=== PATIENT | female | born 1985 | race African-American/Black ===

== ENCOUNTER 2017-11-05 07:46 | Inpatient (IN) ==
[2017-11-05] MEDS ORDERED: ONDANSETRON 4 MG/2 ML VIAL IV PRN (08:26)
[2017-11-05] MEDS ORDERED: SODIUM CHLORIDE 0.9% 1,000 ML IV STA (08:26)
[2017-11-05] MEDS ORDERED: LEVOFLOXACIN INJ 750 MG in PREMIX 1 EACH IV STA (08:27)
[2017-11-05 08:57] LABS: Apearance,Urine Cloudy (Clear); Urine Color Dark yellow (Yellow)
[2017-11-05 08:58] LABS: Glucose,Urine (UA) Negative (Negative); Ketones,Urine Negative (Negative); Nitrite,Urine Negative (Negative); Protein,Urine 2+ MG/DL; Urine Specific Gravity 1.025 (1.001-1.035)
[2017-11-05 08:59] LABS: Bilirubin,Urine Negative (Negative); Blood, Urine 2+ mg/dL (Negative); Urine Urobilinogen 0.2 EU/DL (0.2-1.0)
[2017-11-05 09:04] LABS: RBC,Urine 8 /HPF (0-4); WBC,Urine 10 /HPF (0-6)
[2017-11-05 09:05] LABS: Bacteria,Urine Rare /HPF (Few); Squamous Epithelial Cell,Urine Rare /HPF (0-10)
[2017-11-05 09:15] LABS: Basophils % 0.3 % (0.0-0.8); Eosinophils # 0.1 10*3/uL (0.0-0.87); Eosinophils % 0.9 % (0.00-10.9); Hematocrit 34.3 VOL% (35.7-47.0); Immature Granulocytes % 0.4 %; Immature Granulocytes Absolute 0.04 #; Lymphocytes % 28.2 % (21.3-54.2); Mean Corpuscular HGB Conc 29.2 GM/DL (32-36); Mean Corpuscular Hemoglobin 20 PG (27-34); Mean Corpuscular Volume 68.2 FL (87-102); Mean Platelet Volume 9.6 FL (9.6-12.0); Monocytes # 0.7 10*3/uL (0.11-0.8); Monocytes % 6.9 % (1.7-12.7); Neutrophils # 6.7 10*3/uL (1.4-7.4); Neutrophils % 63.3 % (38.7-73.9); Platelet Count 393 T/CUMM (130-400); Red Blood Count 5.03 MC/CUMM (3.8-5.5); Red Cell Distribution Width 20.2 % (9.3-17.3); White Blood Count 10.6 T/CUMM (4-12)
[2017-11-05] MEDS ORDERED: LEVOFLOXACIN INJ 150 ML IV ONE (09:27)
[2017-11-05] MEDS ORDERED: HYDROmorphone 2 MG/1 ML VIAL IV STA ×2 (09:35→14:30)
[2017-11-05] MEDS ORDERED: HYDROmorphone 2 MG/1 ML VIAL ONE (09:36)
[2017-11-05] MEDS ORDERED: ONDANSETRON 4 MG/2 ML VIAL ONE (09:36)
[2017-11-05 10:03] LABS: Alanine Aminotransferase 11 U/L (13-56); Albumin 3.4 G/DL (3.4-5.0); Alkaline Phosphatase 86 U/L (45-117); Aspartate Amino Transferase 11 U/L (0-37); Bilirubin,Total < 0.39 MG/DL (0.2-1.0); Blood Urea Nitrogen 16 MG/DL (7-18); Calcium 8.6 MG/DL (8.5-10.1); Total Protein 8.1 G/DL (6.4-8.3)
[2017-11-05 10:04] LABS: Glucose 91 MG/DL (74-106); Osmolality,Calculated 279.4 MOS/KG (273-304); Potassium 4.6 MMOL/L (3.5-5.1); Sodium 140 MMOL/L (136-145)
[2017-11-05] MEDS ORDERED: ALUMINUM/MAGNES/SIMETH MAX STR 30 ML UDCUP PO PRN (14:15)
[2017-11-05] MEDS ORDERED: ACETAMINOPHEN 325 MG TABLET PO PRN (14:15)
[2017-11-05] MEDS ORDERED: DEXTROSE 50% 25 GM/50 ML VIAL IV PRN (14:25)
[2017-11-05] MEDS ORDERED: GLUCAGON 1 MG VIAL IM PRN (14:25)
[2017-11-05] MEDS ORDERED: CIPROFLOXACIN 400 MG/200 ML PREMIX IV ONE (14:33)
[2017-11-05] MEDS ORDERED: BISACODYL 5 MG TABLET PO ONE (15:00)
[2017-11-05] MEDS: CIPROFLOXACIN INJ 400 MG in PREMIX 1 EACH IV SCH ×2 (15:07→15:50)
[2017-11-05] MEDS: metroNIDAZOLE INJ 500 MG in PREMIX 1 EACH IV SCH ×2 (16:02→23:39)
[2017-11-05] MEDS: SODIUM CHLORIDE 0.45% 1,000 ML IV SCH ×2 (16:02→23:39)
[2017-11-05] MEDS: INSULIN REGULAR 100 UNIT/ML SUBCUT SCH ×2 (16:39→20:50)
[2017-11-05] MEDS: HYDROmorphone 2 MG/1 ML VIAL IV PRN (20:16)
[2017-11-05] MEDS: ALVIMOPAN 12 MG CAPSULE PO SCH (20:20)
[2017-11-05] MEDS: DOCUSATE SODIUM 100 MG CAPSULE PO SCH (20:20)
[2017-11-05] MEDS: ONDANSETRON 4 MG/2 ML VIAL IV PRN (20:20)
[2017-11-06] MEDS: HYDROmorphone 2 MG/1 ML VIAL IV PRN ×4 (00:43→18:55)
[2017-11-06] MEDS: ONDANSETRON 4 MG/2 ML VIAL IV PRN ×5 (00:48→21:37)
[2017-11-06 05:00] LABS: Basophils % 0.2 % (0.0-0.8); Eosinophils % 0.1 % (0.00-10.9); Hematocrit 31.1 VOL% (35.7-47.0); Hemoglobin 9.1 GM/DL (12.0-16.0); Immature Granulocytes % 0.4 %; Immature Granulocytes Absolute 0.04 #; Lymphocytes # 1.6 10*3/uL (1.4-4.0); Lymphocytes % 15.6 % (21.3-54.2); Mean Corpuscular HGB Conc 29.3 GM/DL (32-36); Mean Corpuscular Hemoglobin 20 PG (27-34); Mean Corpuscular Volume 67.9 FL (87-102); Mean Platelet Volume 9.5 FL (9.6-12.0); Monocytes # 0.7 10*3/uL (0.11-0.8); Monocytes % 6.5 % (1.7-12.7); Neutrophils # 7.8 10*3/uL (1.4-7.4); Neutrophils % 77.2 % (38.7-73.9); Platelet Count 442 T/CUMM (130-400); Red Blood Count 4.58 MC/CUMM (3.8-5.5); Red Cell Distribution Width 19.9 % (9.3-17.3)
[2017-11-06 05:40] LABS: Alanine Aminotransferase < 9 U/L (13-56); Alkaline Phosphatase 83 U/L (45-117); Aspartate Amino Transferase 8 U/L (0-37); Blood Urea Nitrogen 7 MG/DL (7-18); Calcium 8.1 MG/DL (8.5-10.1); Glucose 90 MG/DL (74-106); Osmolality,Calculated 272.7 MOS/KG (273-304); Potassium 4.3 MMOL/L (3.5-5.1); Sodium 138 MMOL/L (136-145); Total Protein 7.2 G/DL (6.4-8.3)
[2017-11-06] MEDS: CIPROFLOXACIN INJ 400 MG in PREMIX 1 EACH IV SCH ×2 (05:49→18:55)
[2017-11-06] MEDS: SODIUM CHLORIDE 0.45% 1,000 ML IV SCH ×2 (06:17→20:20)
[2017-11-06] MEDS: INSULIN REGULAR 100 UNIT/ML SUBCUT SCH ×4 (07:50→21:47)
[2017-11-06] MEDS: metroNIDAZOLE INJ 500 MG in PREMIX 1 EACH IV SCH ×2 (07:56→14:51)
[2017-11-06] MEDS: PANTOPRAZOLE 40 MG VIAL IV SCH (12:16)
[2017-11-06] MEDS: ALVIMOPAN 12 MG CAPSULE PO SCH ×2 (14:50→21:37)
[2017-11-06] MEDS: DOCUSATE SODIUM 100 MG CAPSULE PO SCH ×2 (14:50→21:37)
[2017-11-07] MEDS: metroNIDAZOLE INJ 500 MG in PREMIX 1 EACH IV SCH ×4 (00:57→23:57)
[2017-11-07] MEDS: HYDROmorphone 2 MG/1 ML VIAL IV PRN ×4 (01:24→20:42)
[2017-11-07] MEDS: ONDANSETRON 4 MG/2 ML VIAL IV PRN ×3 (01:25→20:42)
[2017-11-07] MEDS: SODIUM CHLORIDE 0.45% 1,000 ML IV SCH ×3 (02:49→23:57)
[2017-11-07] MEDS: CIPROFLOXACIN INJ 400 MG in PREMIX 1 EACH IV SCH ×2 (05:14→17:51)
[2017-11-07] MEDS: INSULIN REGULAR 100 UNIT/ML SUBCUT SCH ×4 (08:00→20:46)
[2017-11-07] MEDS: PANTOPRAZOLE 40 MG VIAL IV SCH (09:15)
[2017-11-07] MEDS ORDERED: BENZOCAINE 20% SPRAY 57 GM CAN TOP ONE (09:45)
[2017-11-07] MEDS ORDERED: TRIAMCINOLONE ACETONIDE 40 MG/1 ML VIAL MISC INJ ONE (09:45)
[2017-11-07] MEDS ORDERED: TRIAMCINOLONE 0.1% DENTAL PASTE 5 GM TUBE TOP PRN ×2 (10:17→11:59)
[2017-11-07] MEDS: ALVIMOPAN 12 MG CAPSULE PO SCH ×2 (12:18→20:42)
[2017-11-07] MEDS: DOCUSATE SODIUM 100 MG CAPSULE PO SCH ×2 (12:18→20:42)
[2017-11-08] MEDS: SODIUM CHLORIDE 0.45% 1,000 ML IV SCH ×3 (00:22→15:58)
[2017-11-08] MEDS: CIPROFLOXACIN INJ 400 MG in PREMIX 1 EACH IV SCH (05:58)
[2017-11-08] MEDS: metroNIDAZOLE INJ 500 MG in PREMIX 1 EACH IV SCH (07:33)
[2017-11-08] MEDS: INSULIN REGULAR 100 UNIT/ML SUBCUT SCH ×4 (07:39→21:05)
[2017-11-08] MEDS: DOCUSATE SODIUM 100 MG CAPSULE PO SCH ×2 (09:38→20:40)
[2017-11-08] MEDS: PANTOPRAZOLE 40 MG VIAL IV SCH (09:38)
[2017-11-08] MEDS: ALVIMOPAN 12 MG CAPSULE PO SCH (09:38)
[2017-11-08] MEDS: HYDROmorphone 2 MG/1 ML VIAL IV PRN (10:01)
[2017-11-08] MEDS: PHENAZOPYRIDINE 95 MG TABLET PO SCH ×2 (12:58→17:39)
[2017-11-08] MEDS: CIPROFLOXACIN 500 MG TABLET PO SCH (20:40)
[2017-11-09 06:40] LABS: Basophils % 0.3 % (0.0-0.8); Eosinophils # 0.1 10*3/uL (0.0-0.87); Eosinophils % 1.1 % (0.00-10.9); Hematocrit 31.1 VOL% (35.7-47.0); Hemoglobin 9.3 GM/DL (12.0-16.0); Immature Granulocytes % 0.3 %; Immature Granulocytes Absolute 0.03 #; Lymphocytes # 3.6 10*3/uL (1.4-4.0); Lymphocytes % 38.8 % (21.3-54.2); Mean Corpuscular HGB Conc 29.9 GM/DL (32-36); Mean Corpuscular Hemoglobin 20 PG (27-34); Mean Corpuscular Volume 67.5 FL (87-102); Mean Platelet Volume 9.1 FL (9.6-12.0); Monocytes # 0.6 10*3/uL (0.11-0.8); Neutrophils # 4.8 10*3/uL (1.4-7.4); Neutrophils % 52.5 % (38.7-73.9); Platelet Count 465 T/CUMM (130-400); Red Blood Count 4.61 MC/CUMM (3.8-5.5); Red Cell Distribution Width 19.9 % (9.3-17.3); White Blood Count 9.2 T/CUMM (4-12)
[2017-11-09 07:12] LABS: Alanine Aminotransferase 10 U/L (13-56); Albumin 2.9 G/DL (3.4-5.0); Alkaline Phosphatase 71 U/L (45-117); Aspartate Amino Transferase 8 U/L (0-37); Bilirubin,Total < 0.39 MG/DL (0.2-1.0); Blood Urea Nitrogen 11 MG/DL (7-18); Calcium 8.4 MG/DL (8.5-10.1); Glucose 91 MG/DL (74-106); Osmolality,Calculated 277.4 MOS/KG (273-304); Potassium 4.3 MMOL/L (3.5-5.1); Sodium 140 MMOL/L (136-145); Total Protein 7.2 G/DL (6.4-8.3)
[2017-11-09] MEDS: INSULIN REGULAR 100 UNIT/ML SUBCUT SCH (07:19)
[2017-11-09] MEDS: PHENAZOPYRIDINE 95 MG TABLET PO SCH (07:54)
[2017-11-09] MEDS: CIPROFLOXACIN 500 MG TABLET PO SCH ×2 (07:58→10:35)
[2017-11-09] MEDS: DOCUSATE SODIUM 100 MG CAPSULE PO SCH ×2 (07:58→10:35)
[2017-11-09] MEDS: PANTOPRAZOLE 40 MG TABLET PO SCH ×2 (07:59→10:35)
[2017-11-09 11:37] VITALS: BP 161/84
== END 2017-11-09 11:08 | disposition home or self-care (01) | DRG 463 ==
LOC: N.ED 07:46 → N.EDINP 14:15 → N.3E 15:19
PROVIDERS: ADMIT Specialist; ATTEND Specialist

== ENCOUNTER 2020-01-08 09:00 | Inpatient (IN) ==
[2020-01-08] MEDS ORDERED: CLINDAMYCIN INJ 900 MG in PREMIX 1 EACH IV ONE (09:32)
[2020-01-08] MEDS ORDERED: FAMOTIDINE 20 MG/2 ML VIAL IV ONE (09:32)
[2020-01-08] MEDS ORDERED: CITRIC ACID/SODIUM CITRATE 30 ML UDCUP PO ONE (09:32)
[2020-01-08] MEDS: LACTATED RINGERS 1,000 ML IV SCH ×2 (09:34→23:34)
[2020-01-08 09:54] LABS: Basophils % 0.3 % (0.0-0.8); Eosinophils # 0.2 10*3/uL (0.0-0.87); Eosinophils % 1.7 % (0.00-10.9); Hematocrit 37.6 VOL% (35.7-47.0); Hemoglobin 11.6 GM/DL (12.0-16.0); Immature Granulocytes % 0.4 %; Immature Granulocytes Absolute 0.04 #; Lymphocytes # 2.9 10*3/uL (1.4-4.0); Lymphocytes % 29.9 % (21.3-54.2); Mean Corpuscular HGB Conc 30.9 GM/DL (32-36); Mean Corpuscular Volume 76.6 FL (87-102); Mean Platelet Volume 11.3 FL (9.6-12.0); Monocytes % 5.6 % (1.7-12.7); Neutrophils % 62.1 % (38.7-73.9); Platelet Count 238 T/CUMM (130-400); Red Blood Count 4.91 MC/CUMM (3.8-5.5); White Blood Count 9.6 T/CUMM (4-12)
[2020-01-08 10:18] LABS: Alanine Aminotransferase 18 U/L (13-56); Albumin 2.8 G/DL (3.4-5.0); Alkaline Phosphatase 185 U/L (45-117); Aspartate Amino Transferase 20 U/L (0-37); Bilirubin,Total < 0.39 MG/DL (0.2-1.0); Blood Urea Nitrogen 5 MG/DL (7-18); Calcium 8.9 MG/DL (8.5-10.1); Estimated Glom Filtration Rate 193 ML/MIN; Glucose 106 MG/DL (74-106); Osmolality,Calculated 269.8 MOS/KG (273-304); Total Protein 7.9 G/DL (6.4-8.3)
[2020-01-08] MEDS ORDERED: DEXAMETHASONE 4 MG/1 ML VIAL ONE (10:20)
[2020-01-08] MEDS ORDERED: ROPIVACAINE 0.5% 30 ML VIAL ONE (10:20)
[2020-01-08] MEDS ORDERED: OXYTOCIN 40 UNIT in LACTATED RINGERS 1,000 ML IV ONE (11:15)
[2020-01-08] MEDS ORDERED: PHENYLEPHRINE 1 MG/10 ML SYRINGE IV ONE (14:01)
[2020-01-08] MEDS ORDERED: MIDAZOLAM 2 MG/2 ML VIAL ONE (14:02)
[2020-01-08] MEDS ORDERED: fentaNYL 100 MCG/2 ML VIAL ONE (14:02)
[2020-01-08] MEDS ORDERED: propofoL 200 MG/20 ML VIAL IV ONE (14:02)
[2020-01-08] MEDS ORDERED: LIDOCAINE 2% 5 ML VIAL ONE (14:02)
[2020-01-08] MEDS ORDERED: BUPIVACAINE SPINAL 0.75% 2 ML AMP SPINAL ONE (14:02)
[2020-01-08] MEDS ORDERED: ROCURONIUM 100 MG/10 ML VIAL IV ONE (14:03)
[2020-01-08] MEDS ORDERED: SUCCINYLCHOLINE 200 MG/10 ML VIAL ONE (14:03)
[2020-01-08] MEDS ORDERED: MORPHINE 10 MG/10 ML VIAL ONE (14:04)
[2020-01-08 14:55] LABS: Apearance,Urine CLEAR (Clear); Bilirubin,Urine Negative (Negative); Blood, Urine Negative (Negative); Glucose,Urine (UA) Negative (Negative); Ketones,Urine Negative (Negative); Mucus,Urine Occasional /LPF (Occasional); Nitrite,Urine Negative (Negative); Protein,Urine Negative; RBC,Urine 1 /HPF (0-4); Squamous Epithelial Cell,Urine Occasional /HPF (0-10); Urine Color Yellow (Yellow); Urine Specific Gravity 1.008 (1.001-1.035); Urine Urobilinogen < 2.0 EU/DL (0.2-1.0); WBC,Urine <1 /HPF (0-6)
[2020-01-08] MEDS: KETOROLAC 30 MG/1 ML VIAL IV SCH ×2 (15:52→23:32)
[2020-01-08] MEDS ORDERED: OXYTOCIN/LR 20 UNIT/1,000 ML BAG IV ONE ×2 (16:13→16:50)
[2020-01-08] MEDS ORDERED: ONDANSETRON 4 MG/2 ML VIAL IV PRN (16:50)
[2020-01-08] MEDS ORDERED: MAGNESIUM HYDROXIDE SUSP 30 ML UDCUP PO PRN (16:50)
[2020-01-08] MEDS ORDERED: RHO(D) IMMUNE GLOBULIN 300 MCG SYRINGE IM ONE (16:50)
[2020-01-08] MEDS ORDERED: IBUPROFEN 800 MG TABLET PO PRN (16:50)
[2020-01-08] MEDS ORDERED: ACETAMINOPHEN 325 MG TABLET PO PRN (16:50)
[2020-01-08 17:08] LABS: Hemoglobin 9.8 GM/DL (12.0-16.0)
[2020-01-08] MEDS ORDERED: NALOXONE 0.4 MG/ML VIAL IV PRN (17:22)
[2020-01-08] MEDS ORDERED: HYDROmorphone PCA 30 MG/30 ML SYRINGE IV SCH (17:30)
[2020-01-08] MEDS ORDERED: HYDROmorphone PCA 30 MG/30 ML SYRINGE IV ONE (18:09)
[2020-01-08] MEDS: METOCLOPRAMIDE 10 MG/2 ML VIAL IV SCH (19:49)
[2020-01-08] MEDS: diphenhydrAMINE 50 MG/1 ML VIAL IV PRN (21:45)
[2020-01-08] MEDS: CLINDAMYCIN INJ 900 MG in PREMIX 1 EACH IV SCH (21:50)
[2020-01-09] MEDS: METOCLOPRAMIDE 10 MG/2 ML VIAL IV SCH ×3 (04:04→20:53)
[2020-01-09] MEDS: CLINDAMYCIN INJ 900 MG in PREMIX 1 EACH IV SCH (05:10)
[2020-01-09] MEDS: KETOROLAC 30 MG/1 ML VIAL IV SCH ×3 (05:34→15:34)
[2020-01-09 06:09] LABS: Basophils % 0.1 % (0.0-0.8); Eosinophils % 0.1 % (0.00-10.9); Hematocrit 26.6 VOL% (35.7-47.0); Hemoglobin 8.1 GM/DL (12.0-16.0); Immature Granulocytes % 0.5 %; Immature Granulocytes Absolute 0.08 #; Lymphocytes # 2.7 10*3/uL (1.4-4.0); Lymphocytes % 18.3 % (21.3-54.2); Mean Corpuscular HGB Conc 30.5 GM/DL (32-36); Mean Corpuscular Volume 78.2 FL (87-102); Mean Platelet Volume 11.6 FL (9.6-12.0); Monocytes % 6.9 % (1.7-12.7); Neutrophils % 74.1 % (38.7-73.9); Platelet Count 214 T/CUMM (130-400); Red Cell Distribution Width 16.9 % (9.3-17.3); White Blood Count 14.9 T/CUMM (4-12)
[2020-01-09] MEDS ORDERED: ETONOGESTREL 68 MG IMPLANT SUBCUT ONE (07:34)
[2020-01-09] MEDS: LACTATED RINGERS 1,000 ML IV SCH ×6 (07:45→23:26)
[2020-01-09] MEDS: HYDROmorphone 2 MG/1 ML VIAL IV PRN ×4 (08:48→20:58)
[2020-01-09] MEDS: diphenhydrAMINE 50 MG/1 ML VIAL IV PRN (08:55)
[2020-01-09] MEDS: DOCUSATE SODIUM 100 MG CAPSULE PO SCH ×2 (10:01→21:00)
[2020-01-09] MEDS: SERTRALINE 25 MG TABLET PO SCH (10:01)
[2020-01-09] MEDS ORDERED: KETOROLAC 30 MG/1 ML VIAL IV ONE (12:22)
[2020-01-09] MEDS: SIMETHICONE CHEW 80 MG TABLET PO PRN (18:15)
[2020-01-09] MEDS: KETOROLAC 30 MG/1 ML VIAL IV PRN ×2 (18:16→23:30)
[2020-01-10] MEDS: METOCLOPRAMIDE 10 MG/2 ML VIAL IV SCH (04:13)
[2020-01-10] MEDS: HYDROmorphone 2 MG/1 ML VIAL IV PRN ×2 (04:18→06:42)
[2020-01-10] MEDS: LACTATED RINGERS 1,000 ML IV SCH (07:30)
[2020-01-10] MEDS: DOCUSATE SODIUM 100 MG CAPSULE PO SCH ×3 (09:00→23:42)
[2020-01-10] MEDS: SERTRALINE 25 MG TABLET PO SCH (09:00)
[2020-01-10] MEDS: MULTIVITAMIN (PRENATAL) TABLET PO SCH (09:03)
[2020-01-10] MEDS: IBUPROFEN 800 MG TABLET PO SCH ×2 (09:04→17:30)
[2020-01-10] MEDS: METOCLOPRAMIDE 10 MG TABLET PO SCH ×2 (11:55→19:15)
[2020-01-10] MEDS: SIMETHICONE CHEW 80 MG TABLET PO PRN (19:15)
[2020-01-11] MEDS: IBUPROFEN 800 MG TABLET PO SCH ×2 (00:41→08:26)
[2020-01-11] MEDS: METOCLOPRAMIDE 10 MG TABLET PO SCH ×2 (03:48→12:00)
[2020-01-11] MEDS: MULTIVITAMIN (PRENATAL) TABLET PO SCH (08:26)
[2020-01-11] MEDS: SERTRALINE 25 MG TABLET PO SCH (08:26)
[2020-01-11] MEDS: DOCUSATE SODIUM 100 MG CAPSULE PO SCH (08:26)
[2020-01-11 14:44] VITALS: BP 143/71
[2020-01-13] MEDS ORDERED: ETONOGESTREL 68 MG IMPLANT SUBCUT ONE (09:00)
== END 2020-01-11 13:15 | disposition home or self-care (01) | DRG 540 ==
LOC: N.LD 09:07 → N.OB 16:33
PROVIDERS: ADMIT Obstetrics & Gynecology; ATTEND Obstetrics & Gynecology
PROC: LDCSECT (ICD-10-PCS; 2020-01-08 09:15)

== ENCOUNTER 2020-01-16 11:20 | Inpatient (IN) ==
[2020-01-16 17:35] LABS: Basophils % 0.3 % (0.0-0.8); Eosinophils # 0.3 10*3/uL (0.0-0.87); Eosinophils % 2.9 % (0.00-10.9); Hematocrit 23.9 VOL% (35.7-47.0); Hemoglobin 7.1 GM/DL (12.0-16.0); Immature Granulocytes % 0.6 %; Immature Granulocytes Absolute 0.07 #; Lymphocytes # 2.5 10*3/uL (1.4-4.0); Lymphocytes % 21.9 % (21.3-54.2); Mean Corpuscular HGB Conc 29.7 GM/DL (32-36); Mean Corpuscular Volume 78.6 FL (87-102); Mean Platelet Volume 9.7 FL (9.6-12.0); Monocytes % 6.6 % (1.7-12.7); NRBC # 0.03 10*3/uL; Neutrophils % 67.7 % (38.7-73.9); Platelet Count 466 T/CUMM (130-400); Red Blood Count 3.04 MC/CUMM (3.8-5.5); White Blood Count 11.2 T/CUMM (4-12)
[2020-01-16] MEDS: LACTATED RINGERS 1,000 ML IV SCH (17:40)
[2020-01-16 18:02] LABS: Alanine Aminotransferase 29 U/L (13-56); Albumin 2.3 G/DL (3.4-5.0); Alkaline Phosphatase 114 U/L (45-117); Aspartate Amino Transferase 15 U/L (0-37); Bilirubin,Total < 0.39 MG/DL (0.2-1.0); Blood Urea Nitrogen 10 MG/DL (7-18); Calcium 7.9 MG/DL (8.5-10.1); Estimated Glom Filtration Rate 182 ML/MIN; Glucose 92 MG/DL (74-106); Osmolality,Calculated 279.3 MOS/KG (273-304); Total Protein 7.2 G/DL (6.4-8.3)
[2020-01-16] MEDS: KETOROLAC 30 MG/1 ML VIAL IV PRN (18:42)
[2020-01-17] MEDS: LACTATED RINGERS 1,000 ML IV SCH ×3 (01:43→15:15)
[2020-01-17] MEDS: KETOROLAC 30 MG/1 ML VIAL IV PRN ×2 (08:13→18:22)
[2020-01-17] MEDS ORDERED: GENTAMICIN INJ 80 MG in PREMIX 1 EACH IV SCH (08:30)
[2020-01-17] MEDS: cefTRIAXone 2,000 MG in SYRINGE 1 EACH IV SCH (09:27)
[2020-01-17] MEDS: CLINDAMYCIN INJ 600 MG in PREMIX 1 EACH IV SCH ×2 (09:36→17:18)
[2020-01-17] MEDS: GENTAMICIN INJ 120 MG in PREMIX 1 EACH IV SCH ×2 (15:17→23:37)
[2020-01-18] MEDS: CLINDAMYCIN INJ 600 MG in PREMIX 1 EACH IV SCH ×2 (00:48→09:10)
[2020-01-18] MEDS: LACTATED RINGERS 1,000 ML IV SCH ×4 (01:33→15:17)
[2020-01-18] MEDS: GENTAMICIN INJ 120 MG in PREMIX 1 EACH IV SCH (06:18)
[2020-01-18] MEDS: SERTRALINE 25 MG TABLET PO SCH (09:04)
[2020-01-18] MEDS: cefTRIAXone 2,000 MG in SYRINGE 1 EACH IV SCH (09:05)
[2020-01-18] MEDS ORDERED: SIMETHICONE CHEW 125 MG TABLET PO PRN (12:03)
[2020-01-18] MEDS: metroNIDAZOLE INJ 500 MG in PREMIX 1 EACH IV SCH ×2 (13:00→19:54)
[2020-01-18] MEDS ORDERED: IBUPROFEN 800 MG TABLET PO PRN (15:44)
[2020-01-19] MEDS: KETOROLAC 30 MG/1 ML VIAL IV PRN (02:44)
[2020-01-19] MEDS: metroNIDAZOLE INJ 500 MG in PREMIX 1 EACH IV SCH (03:13)
[2020-01-19 07:13] LABS: Basophils % 0.3 % (0.0-0.8); Eosinophils # 0.4 10*3/uL (0.0-0.87); Eosinophils % 4.1 % (0.00-10.9); Hematocrit 23.5 VOL% (35.7-47.0); Immature Granulocytes % 0.6 %; Immature Granulocytes Absolute 0.06 #; Lymphocytes # 1.3 10*3/uL (1.4-4.0); Mean Corpuscular HGB Conc 28.9 GM/DL (32-36); Mean Corpuscular Volume 78.3 FL (87-102); Mean Platelet Volume 9.6 FL (9.6-12.0); Monocytes % 7.2 % (1.7-12.7); NRBC # 0.02 10*3/uL; Neutrophils % 73.8 % (38.7-73.9); Platelet Count 501 T/CUMM (130-400); White Blood Count 9.4 T/CUMM (4-12)
[2020-01-19 07:25] LABS: Hemoglobin 6.8 GM/DL (12.0-16.0)
[2020-01-19 07:35] LABS: Hypochromasia 2+; Microcytosis 1+; Ovalocytes Slight; Platelet Estimate Increased
[2020-01-19 07:45] LABS: Calcium 8.3 MG/DL (8.5-10.1); Osmolality,Calculated 278.1 MOS/KG (273-304); Total Protein 6.5 G/DL (6.4-8.3)
[2020-01-19] MEDS ORDERED: SODIUM CHLORIDE 0.9% 1,000 ML IV PRN (09:29)
[2020-01-19] MEDS: SERTRALINE 25 MG TABLET PO SCH (09:44)
[2020-01-19 09:49] VITALS: BP 151/75
[2020-01-19] MEDS: cefTRIAXone 2,000 MG in SYRINGE 1 EACH IV SCH (09:51)
== END 2020-01-19 11:09 | disposition left against medical advice (07) ==
LOC: N.3E
PROVIDERS: ADMIT Obstetrics & Gynecology; ATTEND Obstetrics & Gynecology

== ENCOUNTER 2020-05-27 13:44 | Inpatient (IN) ==
[2020-05-27] MEDS ORDERED: LACTATED RINGERS 1,000 ML IV STA (13:51)
[2020-05-27] MEDS ORDERED: ONDANSETRON 4 MG/2 ML VIAL ONE ×2 (13:53→20:19)
[2020-05-27] MEDS ORDERED: HYDROmorphone 2 MG/1 ML VIAL IV STA (14:26)
[2020-05-27] MEDS ORDERED: ONDANSETRON 4 MG/2 ML VIAL IV STA (14:26)
[2020-05-27] MEDS ORDERED: HYDROmorphone 2 MG/1 ML VIAL ONE (14:27)
[2020-05-27 14:47] LABS: Apearance,Urine CLEAR (Clear); Bilirubin,Urine Negative (Negative); Blood, Urine Negative (Negative); Glucose,Urine (UA) Negative (Negative); Ketones,Urine Negative (Negative); Mucus,Urine Occasional /LPF (Occasional); Nitrite,Urine Negative (Negative); Protein,Urine Negative; RBC,Urine 1 /HPF (0-4); Squamous Epithelial Cell,Urine Occasional /HPF (0-10); Urine Color Yellow (Yellow); Urine Specific Gravity 1.027 (1.001-1.035); Urine Urobilinogen < 2.0 EU/DL (0.2-1.0); WBC,Urine 2 /HPF (0-6)
[2020-05-27 14:50] LABS: Barbiturates Screen,Urine Negative (Negative); Benzodiazepines Screen,Urine Positive (Negative); Cannabinoid Screen,Urine Positive (Negative); Opiate Screen,Urine Negative (Negative); Phencyclidine Screen,Urine Negative (Negative)
[2020-05-27 15:10] LABS: Basophils % 0.2 % (0.0-0.8); Eosinophils # 0.1 10*3/uL (0.0-0.87); Hematocrit 39.2 VOL% (35.7-47.0); Immature Granulocytes % 0.3 %; Immature Granulocytes Absolute 0.03 #; Lymphocytes % 34.4 % (21.3-54.2); Mean Corpuscular HGB Conc 27.8 GM/DL (32-36); Mean Corpuscular Volume 70.5 FL (87-102); Mean Platelet Volume 9.3 FL (9.6-12.0); Monocytes % 1.6 % (1.7-12.7); Neutrophils % 62.5 % (38.7-73.9); Platelet Count 551 T/CUMM (130-400); Red Blood Count 5.56 MC/CUMM (3.8-5.5); Red Cell Distribution Width 19.6 % (9.3-17.3); White Blood Count 8.8 T/CUMM (4-12)
[2020-05-27 15:20] LABS: PT Patient Result 10.4 SECS (9.8-11.9); Partial Thromboplastin Time 23.9 SECS (23.9-33.8)
[2020-05-27 15:27] LABS: Alanine Aminotransferase 11 U/L (13-56); Albumin 3.2 G/DL (3.4-5.0); Alkaline Phosphatase 84 U/L (45-117); Aspartate Amino Transferase 10 U/L (0-37); Bilirubin,Total < 0.39 MG/DL (0.2-1.0); Blood Urea Nitrogen 10 MG/DL (7-18); Calcium 7.9 MG/DL (8.5-10.1); Estimated Glom Filtration Rate 144 ML/MIN; Glucose 185 MG/DL (74-106); Osmolality,Calculated 278.7 MOS/KG (273-304); Total Protein 7.8 G/DL (6.4-8.3)
[2020-05-27 15:31] LABS: Hemoglobin 10.9 GM/DL (12.0-16.0)
[2020-05-27 15:36] LABS: Hypochromasia Slight; Microcytosis 2+; Platelet Estimate Increased
[2020-05-27] MEDS ORDERED: KETOROLAC 30 MG/1 ML VIAL ONE (15:53)
[2020-05-27] MEDS ORDERED: ACETAMINOPHEN 325 MG TABLET PO PRN (16:06)
[2020-05-27] MEDS ORDERED: KETOROLAC 15 MG/1 ML VIAL IV PRN (16:06)
[2020-05-27] MEDS ORDERED: ALBUTEROL/IPRATROPIUM 3 ML NEB RESP TX PRN (16:06)
[2020-05-27] MEDS ORDERED: BISACODYL 5 MG TABLET PO PRN (16:06)
[2020-05-27] MEDS ORDERED: CLINDAMYCIN INJ 900 MG in PREMIX 1 EACH IV ONE (17:54)
[2020-05-27] MEDS: LACTATED RINGERS 1,000 ML IV SCH ×2 (18:16→20:00)
[2020-05-27] MEDS ORDERED: LIDOCAINE 1%/EPI INJ 20 ML VIAL ONE (18:42)
[2020-05-27] MEDS ORDERED: BUPIVACAINE MPF 0.25% 30 ML VIAL ONE (18:42)
[2020-05-27] MEDS ORDERED: MIDAZOLAM 2 MG/2 ML VIAL ONE (20:19)
[2020-05-27] MEDS ORDERED: LIDOCAINE 2% 5 ML VIAL ONE (20:19)
[2020-05-27] MEDS ORDERED: fentaNYL 100 MCG/2 ML VIAL ONE (20:19)
[2020-05-27] MEDS ORDERED: propofoL 200 MG/20 ML VIAL IV ONE (20:19)
[2020-05-27] MEDS ORDERED: SEVOFLURANE 1 UNIT/15 MINUTE INH ONE (20:19)
[2020-05-27] MEDS ORDERED: ACETAMINOPHEN 1,000 MG/100 ML VIAL IV ONE (20:20)
[2020-05-27] MEDS ORDERED: ROCURONIUM 100 MG/10 ML VIAL IV ONE (20:20)
[2020-05-27] MEDS ORDERED: SUCCINYLCHOLINE 200 MG/10 ML VIAL ONE (20:20)
[2020-05-27] MEDS ORDERED: LACTATED RINGERS 1,000 ML IV ONE (20:20)
[2020-05-27] MEDS ORDERED: PHENYLEPHRINE 1 MG/10 ML SYRINGE IV ONE (20:20)
[2020-05-27 21:11] LABS: Albumin 2.6 G/DL (3.4-5.0); Bilirubin,Total 0.8 MG/DL (0.2-1.0); Calcium 7.5 MG/DL (8.5-10.1); Eosinophils # 0.2 10*3/uL (0.0-0.87); Eosinophils % 6.1 % (0.00-10.9); Hemoglobin 10.8 GM/DL (12.0-16.0); Lymphocytes # 0.4 10*3/uL (1.4-4.0); Lymphocytes % 15.5 % (21.3-54.2); Mean Corpuscular HGB Conc 28.1 GM/DL (32-36); Mean Platelet Volume 9.2 FL (9.6-12.0); Monocytes % 8.2 % (1.7-12.7); Neutrophils % 70.2 % (38.7-73.9); Osmolality,Calculated 282.1 MOS/KG (273-304); Platelet Count 371 T/CUMM (130-400); Red Blood Count 5.41 MC/CUMM (3.8-5.5); Red Cell Distribution Width 19.2 % (9.3-17.3); Total Protein 6.2 G/DL (6.4-8.3); White Blood Count 2.5 T/CUMM (4-12)
[2020-05-27 21:16] LABS: Hematocrit 38.4 VOL% (35.7-47.0)
[2020-05-27 21:30] LABS: Band Neutrophils 5 % (0-10); Lymphocytes 23 % (20-55); Platelet Estimate Normal; Segmented Neutrophils 66 % (50-85); Total Cells Counted 100
[2020-05-27 21:31] LABS: Hypochromasia Slight; Microcytosis 1+
[2020-05-27] MEDS: KETOROLAC 30 MG/1 ML VIAL IV SCH (21:37)
[2020-05-27] MEDS: metroNIDAZOLE INJ 500 MG in PREMIX 1 EACH IV SCH (21:38)
[2020-05-27] MEDS: HYDROmorphone 2 MG/1 ML VIAL IV PRN (23:03)
[2020-05-27] MEDS: CIPROFLOXACIN INJ 400 MG in PREMIX 1 EACH IV SCH (23:03)
[2020-05-28] MEDS: KETOROLAC 30 MG/1 ML VIAL IV SCH ×4 (02:19→20:37)
[2020-05-28] MEDS: LACTATED RINGERS 1,000 ML IV SCH (02:21)
[2020-05-28] MEDS: metroNIDAZOLE INJ 500 MG in PREMIX 1 EACH IV SCH ×3 (05:04→20:37)
[2020-05-28] MEDS: HYDROmorphone 2 MG/1 ML VIAL IV PRN ×4 (05:06→23:53)
[2020-05-28 05:35] LABS: Albumin 2.5 G/DL (3.4-5.0); Bilirubin,Total 0.7 MG/DL (0.2-1.0); Osmolality,Calculated 277.5 MOS/KG (273-304); Total Protein 6.7 G/DL (6.4-8.3)
[2020-05-28 06:21] LABS: Basophils % 0.2 % (0.0-0.8); Hematocrit 40.7 VOL% (35.7-47.0); Hemoglobin 11.7 GM/DL (12.0-16.0); Immature Granulocytes % 0.2 %; Immature Granulocytes Absolute 0.01 #; Lymphocytes # 0.6 10*3/uL (1.4-4.0); Lymphocytes % 11.8 % (21.3-54.2); Mean Corpuscular HGB Conc 28.7 GM/DL (32-36); Mean Corpuscular Volume 70.3 FL (87-102); Monocytes % 2.9 % (1.7-12.7); Neutrophils % 84.9 % (38.7-73.9); Platelet Count 395 T/CUMM (130-400); Red Blood Count 5.79 MC/CUMM (3.8-5.5); Red Cell Distribution Width 19.5 % (9.3-17.3); White Blood Count 5.2 T/CUMM (4-12)
[2020-05-28 06:36] LABS: Band Neutrophils 20 % (0-10); Hypochromasia 1+; Lymphocytes 19 % (20-55); Metamyelocytes 6 %; Myelocytes 2 %; Segmented Neutrophils 50 % (50-85); Total Cells Counted 100
[2020-05-28 06:37] LABS: Acanthocytes Few; Microcytosis 1+; Ovalocytes Slight
[2020-05-28 06:38] LABS: Platelet Estimate Normal
[2020-05-28 06:57] LABS: Calcium 7.9 MG/DL (8.5-10.1); Osmolality,Calculated 278.5 MOS/KG (273-304)
[2020-05-28] MEDS ORDERED: PANTOPRAZOLE 40 MG TABLET PO SCH (09:00)
[2020-05-28] MEDS: ONDANSETRON 4 MG/2 ML VIAL IV PRN ×2 (09:34→17:21)
[2020-05-28] MEDS: CIPROFLOXACIN INJ 400 MG in PREMIX 1 EACH IV SCH ×2 (09:42→21:51)
[2020-05-29] MEDS: KETOROLAC 30 MG/1 ML VIAL IV SCH ×4 (04:32→20:42)
[2020-05-29] MEDS: HYDROmorphone 2 MG/1 ML VIAL IV PRN ×2 (04:43→08:22)
[2020-05-29] MEDS: metroNIDAZOLE INJ 500 MG in PREMIX 1 EACH IV SCH ×3 (06:36→18:04)
[2020-05-29 07:01] LABS: Osmolality,Calculated 270.8 MOS/KG (273-304)
[2020-05-29] MEDS ORDERED: NALOXONE 0.4 MG/ML VIAL IV PRN (07:23)
[2020-05-29 07:39] LABS: Basophils # 0.1 10*3/uL (0.0-0.2); Basophils % 0.4 % (0.0-0.8); Eosinophils # 0.1 10*3/uL (0.0-0.87); Eosinophils % 0.8 % (0.00-10.9); Hematocrit 33.8 VOL% (35.7-47.0); Hemoglobin 9.8 GM/DL (12.0-16.0); Immature Granulocytes Absolute 1.27 #; Lymphocytes # 0.8 10*3/uL (1.4-4.0); Lymphocytes % 5.2 % (21.3-54.2); Mean Corpuscular Volume 68.3 FL (87-102); Mean Platelet Volume 9.9 FL (9.6-12.0); Monocytes % 1.8 % (1.7-12.7); Neutrophils % 83.8 % (38.7-73.9); Platelet Count 328 T/CUMM (130-400); Red Blood Count 4.95 MC/CUMM (3.8-5.5); Red Cell Distribution Width 19.3 % (9.3-17.3); White Blood Count 15.8 T/CUMM (4-12)
[2020-05-29 08:00] LABS: Band Neutrophils 14 % (0-10); Lymphocytes 1 % (20-55); Segmented Neutrophils 83 % (50-85); Total Cells Counted 100
[2020-05-29 08:04] LABS: Burr Cells Slight; Platelet Estimate Normal; Polychromasia Slight; Schistocytes Slight; Target Cells Few
[2020-05-29] MEDS: PANTOPRAZOLE 40 MG VIAL IV SCH (08:29)
[2020-05-29] MEDS ORDERED: CIPROFLOXACIN INJ 400 MG in PREMIX 1 EACH IV SCH (09:00)
[2020-05-29] MEDS: HYDROmorphone PCA 30 MG/30 ML SYRINGE IV SCH (10:16)
[2020-05-29] MEDS: CIPROFLOXACIN INJ 400 MG in PREMIX 1 EACH IV SCH (11:25)
[2020-05-29] MEDS: ONDANSETRON 4 MG/2 ML VIAL IV PRN (12:37)
[2020-05-29] MEDS ORDERED: LORazepam 0.5 MG TABLET PO ONE (13:19)
[2020-05-30] MEDS: CIPROFLOXACIN INJ 400 MG in PREMIX 1 EACH IV SCH ×2 (00:10→11:46)
[2020-05-30] MEDS: metroNIDAZOLE INJ 500 MG in PREMIX 1 EACH IV SCH ×4 (01:35→18:08)
[2020-05-30] MEDS: KETOROLAC 30 MG/1 ML VIAL IV SCH ×4 (03:25→21:03)
[2020-05-30] MEDS: diphenhydrAMINE CAP 25 MG CAPSULE PO PRN ×3 (04:06→18:07)
[2020-05-30 05:33] LABS: Basophils % 0.2 % (0.0-0.8); Eosinophils # 0.1 10*3/uL (0.0-0.87); Hematocrit 31.5 VOL% (35.7-47.0); Hemoglobin 9.3 GM/DL (12.0-16.0); Immature Granulocytes % 0.4 %; Immature Granulocytes Absolute 0.05 #; Lymphocytes # 0.7 10*3/uL (1.4-4.0); Lymphocytes % 5.3 % (21.3-54.2); Mean Corpuscular HGB Conc 29.5 GM/DL (32-36); Mean Corpuscular Volume 67.2 FL (87-102); Mean Platelet Volume 9.6 FL (9.6-12.0); Monocytes % 1.4 % (1.7-12.7); Neutrophils % 91.7 % (38.7-73.9); Platelet Count 311 T/CUMM (130-400); Red Blood Count 4.69 MC/CUMM (3.8-5.5); Red Cell Distribution Width 18.7 % (9.3-17.3); White Blood Count 12.5 T/CUMM (4-12)
[2020-05-30 05:44] LABS: Calcium 8.1 MG/DL (8.5-10.1); Osmolality,Calculated 270.8 MOS/KG (273-304)
[2020-05-30 06:12] LABS: Acanthocytes Few; Anisocytosis 1+; Band Neutrophils 2 % (0-10); Eosinophils 1 % (0-10); Hypochromasia 2+; Lymphocytes 4 % (20-55); Microcytosis 1+; Ovalocytes 1+; Platelet Estimate Normal; Segmented Neutrophils 90 % (50-85); Target Cells 1+; Total Cells Counted 100
[2020-05-30] MEDS: PANTOPRAZOLE 40 MG VIAL IV SCH (09:22)
[2020-05-31] MEDS: CIPROFLOXACIN INJ 400 MG in PREMIX 1 EACH IV SCH ×3 (00:01→23:01)
[2020-05-31] MEDS: metroNIDAZOLE INJ 500 MG in PREMIX 1 EACH IV SCH ×4 (00:19→18:29)
[2020-05-31] MEDS: KETOROLAC 30 MG/1 ML VIAL IV SCH ×4 (02:00→20:07)
[2020-05-31] MEDS: ONDANSETRON 4 MG/2 ML VIAL IV PRN (03:00)
[2020-05-31] MEDS: HYDROmorphone PCA 30 MG/30 ML SYRINGE IV SCH ×2 (08:14→08:15)
[2020-05-31] MEDS: diphenhydrAMINE CAP 25 MG CAPSULE PO PRN (10:14)
[2020-05-31] MEDS: PANTOPRAZOLE 40 MG VIAL IV SCH (10:14)
[2020-06-01] MEDS: metroNIDAZOLE INJ 500 MG in PREMIX 1 EACH IV SCH ×4 (00:11→18:03)
[2020-06-01] MEDS: KETOROLAC 30 MG/1 ML VIAL IV SCH ×3 (01:25→13:17)
[2020-06-01] MEDS: ONDANSETRON 4 MG/2 ML VIAL IV PRN ×4 (01:26→17:56)
[2020-06-01 06:07] LABS: Basophils % 0.2 % (0.0-0.8); Eosinophils # 0.2 10*3/uL (0.0-0.87); Eosinophils % 1.2 % (0.00-10.9); Immature Granulocytes % 2.2 %; Immature Granulocytes Absolute 0.28 #; Lymphocytes # 1.6 10*3/uL (1.4-4.0); Lymphocytes % 12.7 % (21.3-54.2); Mean Corpuscular HGB Conc 28.4 GM/DL (32-36); Mean Corpuscular Volume 69.9 FL (87-102); Mean Platelet Volume 11.1 FL (9.6-12.0); Monocytes % 7.2 % (1.7-12.7); Neutrophils % 76.5 % (38.7-73.9); Platelet Count 270 T/CUMM (130-400); Red Blood Count 4.89 MC/CUMM (3.8-5.5); White Blood Count 12.6 T/CUMM (4-12)
[2020-06-01] MEDS ORDERED: LIDOCAINE 1%/EPI INJ 20 ML VIAL ONE (06:44)
[2020-06-01] MEDS ORDERED: BUPIVACAINE 0.5% 50 ML VIAL ONE (06:44)
[2020-06-01 06:51] LABS: Hematocrit 31.6 VOL% (35.7-47.0); Hemoglobin 9.8 GM/DL (12.0-16.0)
[2020-06-01 06:54] LABS: Eosinophils 1 % (0-10); Lymphocytes 14 % (20-55); Segmented Neutrophils 79 % (50-85); Total Cells Counted 100
[2020-06-01 06:55] LABS: Acanthocytes Few; Hypochromasia 2+; Microcytosis 1+; Target Cells Slight
[2020-06-01 06:56] LABS: Burr Cells Slight; Platelet Estimate Normal
[2020-06-01 06:57] LABS: Ovalocytes Slight
[2020-06-01] MEDS ORDERED: LACTATED RINGERS 1,000 ML IV SCH (07:00)
[2020-06-01 07:10] LABS: Calcium 8.1 MG/DL (8.5-10.1); Osmolality,Calculated 262.4 MOS/KG (273-304)
[2020-06-01] MEDS ORDERED: LIDOCAINE 2% 5 ML VIAL ONE (08:06)
[2020-06-01] MEDS ORDERED: SEVOFLURANE 1 UNIT/15 MINUTE INH ONE (08:06)
[2020-06-01] MEDS ORDERED: fentaNYL 100 MCG/2 ML VIAL ONE ×2 (08:06→08:07)
[2020-06-01] MEDS ORDERED: propofoL 200 MG/20 ML VIAL IV ONE (08:06)
[2020-06-01] MEDS ORDERED: DEXAMETHASONE 4 MG/1 ML VIAL ONE (08:07)
[2020-06-01] MEDS ORDERED: MIDAZOLAM 2 MG/2 ML VIAL ONE (08:07)
[2020-06-01] MEDS ORDERED: ONDANSETRON 4 MG/2 ML VIAL ONE ×2 (08:07→08:08)
[2020-06-01] MEDS ORDERED: HYDROmorphone 2 MG/1 ML VIAL ONE (08:08)
[2020-06-01] MEDS: HYDROmorphone 2 MG/1 ML VIAL IV PRN ×3 (08:09→08:25)
[2020-06-01] MEDS ORDERED: ONDANSETRON 4 MG/2 ML VIAL IV PRN (08:11)
[2020-06-01] MEDS: PANTOPRAZOLE 40 MG VIAL IV SCH (09:04)
[2020-06-01] MEDS: LACTATED RINGERS 1,000 ML IV SCH ×2 (09:13→16:53)
[2020-06-01] MEDS: CIPROFLOXACIN INJ 400 MG in PREMIX 1 EACH IV SCH ×2 (13:16→23:33)
[2020-06-02] MEDS: metroNIDAZOLE INJ 500 MG in PREMIX 1 EACH IV SCH ×3 (01:49→14:25)
[2020-06-02] MEDS: LACTATED RINGERS 1,000 ML IV SCH ×2 (03:28→09:15)
[2020-06-02 06:57] LABS: Basophils % 0.2 % (0.0-0.8); Eosinophils % 0.1 % (0.00-10.9); Hematocrit 30.7 VOL% (35.7-47.0); Hemoglobin 9.6 GM/DL (12.0-16.0); Immature Granulocytes % 0.5 %; Immature Granulocytes Absolute 0.08 #; Lymphocytes # 2.1 10*3/uL (1.4-4.0); Mean Corpuscular HGB Conc 31.3 GM/DL (32-36); Mean Platelet Volume 9.4 FL (9.6-12.0); Neutrophils % 78.2 % (38.7-73.9); Platelet Count 318 T/CUMM (130-400); Red Blood Count 4.87 MC/CUMM (3.8-5.5); Red Cell Distribution Width 18.9 % (9.3-17.3); White Blood Count 15.3 T/CUMM (4-12)
[2020-06-02 07:11] LABS: Calcium 8.1 MG/DL (8.5-10.1)
[2020-06-02 07:20] LABS: Hypochromasia 2+; Lymphocytes 14 % (20-55); Segmented Neutrophils 81 % (50-85); Target Cells Slight; Total Cells Counted 100
[2020-06-02 07:21] LABS: Acanthocytes Few; Microcytosis 1+; Platelet Estimate Normal
[2020-06-02] MEDS: HYDROmorphone PCA 30 MG/30 ML SYRINGE IV SCH ×2 (07:39)
[2020-06-02] MEDS: PANTOPRAZOLE 40 MG VIAL IV SCH (08:10)
[2020-06-02] MEDS: ONDANSETRON 4 MG/2 ML VIAL IV PRN ×2 (08:10→16:57)
[2020-06-02] MEDS: NYSTATIN 500,000 UNIT/5 ML UDCUP SWISH/SWAL SCH ×4 (08:10→21:00)
[2020-06-02] MEDS: CIPROFLOXACIN INJ 400 MG in PREMIX 1 EACH IV SCH (11:52)
[2020-06-02] MEDS ORDERED: POTASSIUM CHLORIDE 20 MEQ TABLET PO PRN (12:38)
[2020-06-02] MEDS ORDERED: DEXT 5% NACL 0.45% KCL 40 MEQ 40 MEQ/1,000 ML BAG IV SCH (13:00)
[2020-06-02] MEDS: ENOXAPARIN 40 MG/0.4 ML SYRINGE SUBCUT SCH (14:47)
[2020-06-02] MEDS: POTASSIUM CHLORIDE RIDER 10 MEQ in PREMIX 1 EACH IV SCH ×3 (16:54→18:24)
[2020-06-02] MEDS: metroNIDAZOLE 500 MG TABLET PO SCH (21:00)
[2020-06-02] MEDS: CIPROFLOXACIN 500 MG TABLET PO SCH (21:00)
[2020-06-02] MEDS: HYDROmorphone 2 MG/1 ML VIAL IM PRN (23:42)
[2020-06-03] MEDS: PROMETHAZINE 25 MG/1 ML VIAL IM PRN ×2 (00:15→07:49)
[2020-06-03] MEDS: metroNIDAZOLE 500 MG TABLET PO SCH ×3 (05:20→20:59)
[2020-06-03] MEDS: HYDROmorphone 2 MG/1 ML VIAL IM PRN (07:44)
[2020-06-03 09:15] LABS: Calcium 7.4 MG/DL (8.5-10.1); Osmolality,Calculated 276.4 MOS/KG (273-304)
[2020-06-03 09:50] LABS: Basophils % 0.1 % (0.0-0.8); Eosinophils % 0.1 % (0.00-10.9); Hematocrit 25.2 VOL% (35.7-47.0); Immature Granulocytes % 1.2 %; Immature Granulocytes Absolute 0.17 #; Lymphocytes # 2.7 10*3/uL (1.4-4.0); Lymphocytes % 19.6 % (21.3-54.2); Mean Corpuscular HGB Conc 31.7 GM/DL (32-36); Mean Corpuscular Volume 62.8 FL (87-102); Mean Platelet Volume 9.7 FL (9.6-12.0); Monocytes % 7.6 % (1.7-12.7); Neutrophils % 71.4 % (38.7-73.9); Platelet Count 332 T/CUMM (130-400); Red Blood Count 4.01 MC/CUMM (3.8-5.5); Red Cell Distribution Width 18.9 % (9.3-17.3); White Blood Count 13.6 T/CUMM (4-12)
[2020-06-03] MEDS ORDERED: POTASSIUM CHLORIDE RIDER 20 MEQ in PREMIX 1 EACH IV PRN (09:50)
[2020-06-03] MEDS ORDERED: POTASSIUM CHLORIDE RIDER 10 MEQ in PREMIX 1 EACH IV PRN (09:50)
[2020-06-03] MEDS: CIPROFLOXACIN 500 MG TABLET PO SCH ×2 (09:51→20:59)
[2020-06-03] MEDS: NYSTATIN 500,000 UNIT/5 ML UDCUP SWISH/SWAL SCH ×4 (09:51→20:59)
[2020-06-03] MEDS: PANTOPRAZOLE 40 MG VIAL IV SCH (09:51)
[2020-06-03 10:04] LABS: Hypochromasia 1+; Lymphocytes 19 % (20-55); Platelet Estimate Adequate; Segmented Neutrophils 75 % (50-85); Total Cells Counted 100
[2020-06-03 10:05] LABS: Microcytosis 1+; Ovalocytes Slight
[2020-06-03] MEDS: POTASSIUM CHLORIDE RIDER 20 MEQ in PREMIX 1 EACH IV SCH ×3 (11:05→16:50)
[2020-06-03] MEDS: KETOROLAC 30 MG/1 ML VIAL IV SCH ×3 (11:05→20:59)
[2020-06-03] MEDS: ONDANSETRON 4 MG/2 ML VIAL IV PRN (11:11)
[2020-06-03] MEDS: ENOXAPARIN 40 MG/0.4 ML SYRINGE SUBCUT SCH ×2 (15:00→16:49)
[2020-06-04] MEDS: KETOROLAC 30 MG/1 ML VIAL IV SCH ×4 (04:06→21:15)
[2020-06-04 04:13] LABS: Basophils % 0.2 % (0.0-0.8); Eosinophils # 0.1 10*3/uL (0.0-0.87); Eosinophils % 0.6 % (0.00-10.9); Hematocrit 26.8 VOL% (35.7-47.0); Hemoglobin 7.8 GM/DL (12.0-16.0); Immature Granulocytes % 1.9 %; Immature Granulocytes Absolute 0.28 #; Lymphocytes # 2.4 10*3/uL (1.4-4.0); Lymphocytes % 16.7 % (21.3-54.2); Mean Corpuscular HGB Conc 29.1 GM/DL (32-36); Mean Corpuscular Volume 66.5 FL (87-102); Mean Platelet Volume 9.2 FL (9.6-12.0); Monocytes % 7.2 % (1.7-12.7); Neutrophils % 73.4 % (38.7-73.9); Platelet Count 342 T/CUMM (130-400); Red Blood Count 4.03 MC/CUMM (3.8-5.5); Red Cell Distribution Width 19.4 % (9.3-17.3); White Blood Count 14.5 T/CUMM (4-12)
[2020-06-04 04:26] LABS: Calcium 7.5 MG/DL (8.5-10.1); Osmolality,Calculated 273.5 MOS/KG (273-304)
[2020-06-04 04:45] LABS: Hypochromasia 1+; Lymphocytes 10 % (20-55); Platelet Estimate Adequate; Segmented Neutrophils 85 % (50-85); Total Cells Counted 100
[2020-06-04 04:46] LABS: Microcytosis 1+
[2020-06-04] MEDS: metroNIDAZOLE 500 MG TABLET PO SCH ×3 (05:58→21:15)
[2020-06-04] MEDS ORDERED: MAGNESIUM SULF RIDER 2 GM in PREMIX 1 EACH IV ONE (08:00)
[2020-06-04] MEDS: ONDANSETRON 4 MG/2 ML VIAL IV PRN ×3 (08:00→21:14)
[2020-06-04] MEDS: HYDROmorphone 2 MG/1 ML VIAL IM PRN (08:50)
[2020-06-04] MEDS: NYSTATIN 500,000 UNIT/5 ML UDCUP SWISH/SWAL SCH ×4 (09:56→21:16)
[2020-06-04] MEDS: CIPROFLOXACIN 500 MG TABLET PO SCH ×2 (09:56→21:16)
[2020-06-04] MEDS: PANTOPRAZOLE 40 MG VIAL IV SCH (10:08)
[2020-06-04] MEDS: ENOXAPARIN 40 MG/0.4 ML SYRINGE SUBCUT SCH (15:56)
[2020-06-05] MEDS: KETOROLAC 30 MG/1 ML VIAL IV SCH ×4 (05:03→21:00)
[2020-06-05] MEDS: ONDANSETRON 4 MG/2 ML VIAL IV PRN ×4 (05:04→20:45)
[2020-06-05] MEDS: metroNIDAZOLE 500 MG TABLET PO SCH ×3 (05:04→21:00)
[2020-06-05 06:31] LABS: Basophils % 0.2 % (0.0-0.8); Eosinophils # 0.2 10*3/uL (0.0-0.87); Eosinophils % 1.5 % (0.00-10.9); Hematocrit 25.2 VOL% (35.7-47.0); Hemoglobin 7.7 GM/DL (12.0-16.0); Immature Granulocytes % 1.1 %; Immature Granulocytes Absolute 0.18 #; Lymphocytes # 2.2 10*3/uL (1.4-4.0); Lymphocytes % 13.2 % (21.3-54.2); Mean Corpuscular HGB Conc 30.6 GM/DL (32-36); Mean Corpuscular Volume 64.3 FL (87-102); Mean Platelet Volume 9.9 FL (9.6-12.0); Monocytes % 5.9 % (1.7-12.7); Neutrophils % 78.1 % (38.7-73.9); Platelet Count 368 T/CUMM (130-400); Red Blood Count 3.92 MC/CUMM (3.8-5.5); Red Cell Distribution Width 19.2 % (9.3-17.3); White Blood Count 16.5 T/CUMM (4-12)
[2020-06-05 06:50] LABS: Calcium 7.5 MG/DL (8.5-10.1); Osmolality,Calculated 273.5 MOS/KG (273-304)
[2020-06-05] MEDS: HYDROmorphone PCA 30 MG/30 ML SYRINGE IV SCH ×2 (07:59→14:25)
[2020-06-05] MEDS ORDERED: DIAZEPAM 5 MG TABLET PO ONE (08:30)
[2020-06-05] MEDS ORDERED: MIDAZOLAM 2 MG/2 ML VIAL IV ONE (08:45)
[2020-06-05] MEDS ORDERED: fentaNYL 100 MCG/2 ML VIAL IV ONE (08:45)
[2020-06-05] MEDS: NYSTATIN 500,000 UNIT/5 ML UDCUP SWISH/SWAL SCH ×4 (09:32→20:41)
[2020-06-05] MEDS: CIPROFLOXACIN 500 MG TABLET PO SCH ×2 (09:32→20:41)
[2020-06-05] MEDS: PANTOPRAZOLE 40 MG VIAL IV SCH (09:33)
[2020-06-05] MEDS ORDERED: MIDAZOLAM 2 MG/2 ML VIAL ONE (10:05)
[2020-06-05] MEDS ORDERED: fentaNYL 100 MCG/2 ML VIAL ONE (10:05)
[2020-06-05] MEDS: DEXT 5% NACL 0.45% KCL 40 MEQ 40 MEQ/1,000 ML BAG IV SCH ×2 (12:12→20:42)
[2020-06-05] MEDS: ENOXAPARIN 40 MG/0.4 ML SYRINGE SUBCUT SCH (14:20)
[2020-06-06] MEDS: KETOROLAC 30 MG/1 ML VIAL IV SCH ×4 (04:25→21:19)
[2020-06-06 04:48] LABS: Basophils % 0.2 % (0.0-0.8); Eosinophils # 0.1 10*3/uL (0.0-0.87); Eosinophils % 0.7 % (0.00-10.9); Hematocrit 25.5 VOL% (35.7-47.0); Hemoglobin 7.7 GM/DL (12.0-16.0); Immature Granulocytes % 1.3 %; Immature Granulocytes Absolute 0.26 #; Mean Corpuscular HGB Conc 30.2 GM/DL (32-36); Mean Corpuscular Volume 64.6 FL (87-102); Mean Platelet Volume 9.9 FL (9.6-12.0); Monocytes % 5.8 % (1.7-12.7); NRBC # 0.02 10*3/uL; Platelet Count 396 T/CUMM (130-400); Red Blood Count 3.95 MC/CUMM (3.8-5.5); Red Cell Distribution Width 19.5 % (9.3-17.3)
[2020-06-06 05:14] LABS: Calcium 7.4 MG/DL (8.5-10.1); Osmolality,Calculated 270.8 MOS/KG (273-304)
[2020-06-06] MEDS: metroNIDAZOLE 500 MG TABLET PO SCH ×3 (05:46→21:18)
[2020-06-06] MEDS: ONDANSETRON 4 MG/2 ML VIAL IV PRN ×4 (05:46→20:30)
[2020-06-06] MEDS: DEXT 5% NACL 0.45% KCL 40 MEQ 40 MEQ/1,000 ML BAG IV SCH ×2 (09:49→17:37)
[2020-06-06] MEDS: PANTOPRAZOLE 40 MG VIAL IV SCH (09:50)
[2020-06-06] MEDS: NYSTATIN 500,000 UNIT/5 ML UDCUP SWISH/SWAL SCH ×4 (09:50→20:27)
[2020-06-06] MEDS: CIPROFLOXACIN 500 MG TABLET PO SCH ×2 (09:50→20:27)
[2020-06-06] MEDS: PROMETHAZINE 25 MG/1 ML VIAL IM PRN (10:43)
[2020-06-06] MEDS: ENOXAPARIN 40 MG/0.4 ML SYRINGE SUBCUT SCH (13:04)
[2020-06-07] MEDS: DEXT 5% NACL 0.45% KCL 40 MEQ 40 MEQ/1,000 ML BAG IV SCH ×3 (01:41→09:18)
[2020-06-07] MEDS: KETOROLAC 30 MG/1 ML VIAL IV SCH ×4 (03:39→21:09)
[2020-06-07 03:57] LABS: Basophils % 0.1 % (0.0-0.8); Eosinophils # 0.2 10*3/uL (0.0-0.87); Eosinophils % 0.7 % (0.00-10.9); Hematocrit 25.3 VOL% (35.7-47.0); Hemoglobin 7.5 GM/DL (12.0-16.0); Immature Granulocytes % 1.2 %; Immature Granulocytes Absolute 0.25 #; Lymphocytes # 2.3 10*3/uL (1.4-4.0); Lymphocytes % 11.3 % (21.3-54.2); Mean Corpuscular HGB Conc 29.6 GM/DL (32-36); Mean Corpuscular Volume 65.9 FL (87-102); Mean Platelet Volume 10.1 FL (9.6-12.0); Monocytes % 7.8 % (1.7-12.7); Neutrophils % 78.9 % (38.7-73.9); Platelet Count 497 T/CUMM (130-400); Red Blood Count 3.84 MC/CUMM (3.8-5.5); White Blood Count 20.7 T/CUMM (4-12)
[2020-06-07 04:16] LABS: Calcium 7.2 MG/DL (8.5-10.1)
[2020-06-07 04:59] LABS: Hypochromasia 1+; Lymphocytes 8 % (20-55); Segmented Neutrophils 89 % (50-85); Total Cells Counted 100
[2020-06-07 05:00] LABS: Anisocytosis 1+; Microcytosis 1+; Ovalocytes Slight; Target Cells Few
[2020-06-07 05:01] LABS: Platelet Estimate Increased
[2020-06-07] MEDS: metroNIDAZOLE 500 MG TABLET PO SCH ×3 (05:16→21:09)
[2020-06-07] MEDS: HYDROmorphone PCA 30 MG/30 ML SYRINGE IV SCH ×3 (06:35→07:41)
[2020-06-07] MEDS: ONDANSETRON 4 MG/2 ML VIAL IV PRN ×3 (09:20→21:09)
[2020-06-07] MEDS: PANTOPRAZOLE 40 MG VIAL IV SCH (09:22)
[2020-06-07] MEDS: CIPROFLOXACIN 500 MG TABLET PO SCH ×2 (09:24→21:09)
[2020-06-07] MEDS: NYSTATIN 500,000 UNIT/5 ML UDCUP SWISH/SWAL SCH ×4 (09:24→21:09)
[2020-06-07 12:22] LABS: Apearance,Urine CLEAR (Clear); Bacteria,Urine Occasional /HPF (Few); Bilirubin,Urine Negative (Negative); Blood, Urine Large mg/dL (Negative); Glucose,Urine (UA) Negative (Negative); Ketones,Urine Negative (Negative); Mucus,Urine Occasional /LPF (Occasional); Nitrite,Urine Negative (Negative); Protein,Urine Negative; RBC,Urine 6 /HPF (0-4); Squamous Epithelial Cell,Urine Occasional /HPF (0-10); Urine Color Yellow (Yellow); Urine Specific Gravity 1.008 (1.001-1.035); Urine Urobilinogen < 2.0 EU/DL (0.2-1.0); WBC,Urine 12 /HPF (0-6)
[2020-06-07] MEDS: PROMETHAZINE 25 MG/1 ML VIAL IM PRN (12:26)
[2020-06-07] MEDS: ENOXAPARIN 40 MG/0.4 ML SYRINGE SUBCUT SCH (14:39)
[2020-06-08] MEDS: DEXT 5% NACL 0.45% KCL 40 MEQ 40 MEQ/1,000 ML BAG IV SCH (01:53)
[2020-06-08] MEDS: KETOROLAC 30 MG/1 ML VIAL IV SCH (04:15)
[2020-06-08 04:37] LABS: Basophils % 0.2 % (0.0-0.8); Eosinophils # 0.2 10*3/uL (0.0-0.87); Eosinophils % 1.4 % (0.00-10.9); Hematocrit 23.6 VOL% (35.7-47.0); Hemoglobin 7.1 GM/DL (12.0-16.0); Immature Granulocytes Absolute 0.15 #; Lymphocytes # 1.8 10*3/uL (1.4-4.0); Lymphocytes % 12.2 % (21.3-54.2); Mean Corpuscular HGB Conc 30.1 GM/DL (32-36); Mean Corpuscular Volume 65.6 FL (87-102); Monocytes % 10.7 % (1.7-12.7); NRBC # 0.02 10*3/uL; Neutrophils % 74.5 % (38.7-73.9); Platelet Count 534 T/CUMM (130-400); Red Cell Distribution Width 20.1 % (9.3-17.3); White Blood Count 14.6 T/CUMM (4-12)
[2020-06-08 05:11] LABS: Calcium 7.2 MG/DL (8.5-10.1)
[2020-06-08] MEDS: metroNIDAZOLE 500 MG TABLET PO SCH ×3 (05:28→21:00)
[2020-06-08] MEDS: ONDANSETRON 4 MG/2 ML VIAL IV PRN ×3 (05:28→21:13)
[2020-06-08 05:40] LABS: Osmolality,Calculated 268.8 MOS/KG (273-304)
[2020-06-08] MEDS: CIPROFLOXACIN 500 MG TABLET PO SCH ×2 (09:16→20:59)
[2020-06-08] MEDS: PANTOPRAZOLE 40 MG VIAL IV SCH (09:17)
[2020-06-08] MEDS: NYSTATIN 500,000 UNIT/5 ML UDCUP SWISH/SWAL SCH ×4 (09:24→21:00)
[2020-06-08] MEDS: ENOXAPARIN 40 MG/0.4 ML SYRINGE SUBCUT SCH (13:33)
[2020-06-08] MEDS: HYDROmorphone PCA 30 MG/30 ML SYRINGE IV SCH (15:59)
[2020-06-09] MEDS: ONDANSETRON 4 MG/2 ML VIAL IV PRN ×6 (02:10→23:30)
[2020-06-09] MEDS: metroNIDAZOLE 500 MG TABLET PO SCH ×3 (06:06→21:02)
[2020-06-09 06:36] LABS: Basophils % 0.3 % (0.0-0.8); Eosinophils # 0.1 10*3/uL (0.0-0.87); Eosinophils % 0.8 % (0.00-10.9); Hematocrit 23.7 VOL% (35.7-47.0); Hemoglobin 7.2 GM/DL (12.0-16.0); Immature Granulocytes % 0.9 %; Immature Granulocytes Absolute 0.11 #; Lymphocytes # 2.7 10*3/uL (1.4-4.0); Lymphocytes % 21.6 % (21.3-54.2); Mean Corpuscular HGB Conc 30.4 GM/DL (32-36); Mean Platelet Volume 10.1 FL (9.6-12.0); Monocytes % 12.6 % (1.7-12.7); NRBC # 0.02 10*3/uL; Neutrophils % 63.8 % (38.7-73.9); Platelet Count 625 T/CUMM (130-400); Red Blood Count 3.59 MC/CUMM (3.8-5.5); Red Cell Distribution Width 20.4 % (9.3-17.3); White Blood Count 12.6 T/CUMM (4-12)
[2020-06-09 06:46] LABS: Calcium 7.5 MG/DL (8.5-10.1); Osmolality,Calculated 264.1 MOS/KG (273-304)
[2020-06-09 07:07] LABS: Acanthocytes 1+; Anisocytosis 3+; Band Neutrophils 1 % (0-10); Hypochromasia 3+; Lymphocytes 20 % (20-55); Macrocytosis 2+; Metamyelocytes 3 %; Microcytosis 1+; Ovalocytes 1+; Platelet Estimate Increased; Segmented Neutrophils 64 % (50-85); Target Cells 2+; Total Cells Counted 100
[2020-06-09] MEDS: PANTOPRAZOLE 40 MG VIAL IV SCH (08:22)
[2020-06-09] MEDS: CIPROFLOXACIN 500 MG TABLET PO SCH ×2 (08:25→20:49)
[2020-06-09] MEDS: NYSTATIN 500,000 UNIT/5 ML UDCUP SWISH/SWAL SCH ×5 (08:25→20:50)
[2020-06-09] MEDS: HYDROmorphone PCA 30 MG/30 ML SYRINGE IV SCH (10:23)
[2020-06-09] MEDS: ENOXAPARIN 40 MG/0.4 ML SYRINGE SUBCUT SCH (13:47)
[2020-06-10] MEDS: HYDROmorphone 2 MG/1 ML VIAL IM PRN (03:19)
[2020-06-10] MEDS ORDERED: HYDROmorphone 2 MG/1 ML VIAL IV PRN (03:39)
[2020-06-10] MEDS: metroNIDAZOLE 500 MG TABLET PO SCH (05:33)
[2020-06-10] MEDS: ONDANSETRON 4 MG/2 ML VIAL IV PRN ×2 (05:33→10:27)
[2020-06-10 08:10] VITALS: BP 141/77
[2020-06-10] MEDS: CIPROFLOXACIN 500 MG TABLET PO SCH (10:24)
[2020-06-10] MEDS: NYSTATIN 500,000 UNIT/5 ML UDCUP SWISH/SWAL SCH (10:24)
[2020-06-10] MEDS: PANTOPRAZOLE 40 MG VIAL IV SCH (10:28)
== END 2020-06-10 11:25 | disposition home or self-care (01) | DRG 329 ==
LOC: EDBD → N.ED 13:44 → N.EDINP 13:44 → N.3E 16:54
PROVIDERS: ADMIT Surgery; ATTEND Surgery